=== PATIENT | male | born 1955 | race Caucasian/White ===

== ENCOUNTER 2019-04-10 09:44 | Outpatient (CLI) | payer MEDICARE, OTHER ==
--- NOTE | 2019-04-10 13:22 | MRI ---
"PRELIMINARY REPORT" MRI PELVIS WITH AND WITHOUT CONTRAST: HISTORY: Elevated PSA. COMPARISON: None. TECHNIQUE: Multiplanar multisequence MRI of the pelvis was performed using prostate protocol. FINDINGS: The prostate measures 5.1 x 4.9 x 5.4 cm for a volume of 69.6 cc. Peripheral zone: There are no abnormal foci of diffusion restriction in the peripheral zone. Transitional zone: No abnormal lentiform focus of T2 signal abnormality. Prostatic capsule: Intact. Neurovascular bundles: Intact. Seminal vesicles: Intact. Urinary bladder: Mildly trabeculated bladder. Lymph nodes: No adenopathy. Bones: On the T1 weighted imaging sequence there are no abnormal foci of marrow signal loss to sugges t osseous metastatic disease. Intrapelvic soft tissues: Mild diverticular disease of the sigmoid colon. IMPRESSION: 1. PI-RADS category 2 - low (clinically significant prostate cancer is unlikely to be present). 2. Prostatic volume of 69.6 cc 3. Intact prosthetic capsule, neurovascular bundles, and seminal vesicles. 4. No evidence for osseous or lymphatic metastatic disease. Transcribed Date/Time: 04/10/2019 1:49 PM
[2019-04-10] MEDS ORDERED: Magnevist 469MG/ML 20 ML VIAL ONE (14:01)
== END 2019-04-10 09:45 | disposition home or self-care (01) ==
LOC: TBSIIMAG 09:44
PROVIDERS: ATTEND Urology
DX: R97.20 Elevated prostate specific antigen [PSA] (principal)
CPT/HCPCS: 72197; A9579

== ENCOUNTER 2019-04-11 08:26 | Outpatient (CLI) | payer MEDICARE, OTHER ==
[2019-04-11] MEDS ORDERED: Iopamidol 370 76% 100 ML VIAL ONE (09:00)
--- NOTE | 2019-04-11 10:15 | CT ---
CT ABDOMEN AND PELVIS WITH AND WITHOUT IV CONTRAST: HISTORY: Elevated PSA. Microscopic hematuria. FINDINGS: The lung bases are clear. No calcified gallstones are seen. The liver, spleen and pancreas appear nor mal. There is nodularity in the adrenal glands, consistent with small adenomas. No calculi are seen in the kidneys, ureters or urinary bladder. No hydroureteronephrosis is noted on either side. Post contrast images demonstrate no evidence of renal mass. There is normal contrast exc retion into the pelvicalyceal systems, ureters and the urinary bladder. The prostate is enlarged. No free air, free fluid or lymphadenopathy is seen in the abdomen or pelvis. The small bowel loops ar e not abnormally dilated. The appendix is normal. There are vascular calcifications without evidence of aneurysmal dilatation of the abdominal aorta. There are degenerative changes in the spine. IMPRESSION: 1. No CT evidence of urinary tract calculi/obstruction or renal mass. 2. Prostatic enlargement. 3. Colonic diverticulosis. 4. Small adrenal adenomas. POS: KYLIE
== END 2019-04-11 08:27 | disposition home or self-care (01) ==
LOC: SCSCT 08:26
PROVIDERS: ATTEND Urology
DX: R97.20 Elevated prostate specific antigen [PSA] (principal); R31.29 Other microscopic hematuria; K57.30 Diverticulosis of large intestine without perforation or abscess without bleeding; N40.0 Benign prostatic hyperplasia without lower urinary tract symptoms; D35.02 Benign neoplasm of left adrenal gland; D35.01 Benign neoplasm of right adrenal gland
CPT/HCPCS: 74178; Q9967

== ENCOUNTER 2019-04-17 07:53 | Outpatient (CLI) | payer MEDICARE, OTHER ==
[2019-04-17 12:37] LABS: Hemoglobin 15.4 g/dL (14.0-18.0); Mean Corpuscular HGB CONC 33.9 g/dL (32.0-36.0); Mean Corpuscular Hemoglobin 29.8 pg (27.0-31.0); Mean Platelet Volume 7.7 fL (7.4-10.4); Platelet Count 204 thou/uL (130-400); RBC Distribution Width 12.6 % (11.5-14.5); Red Blood Cell (RBC) Count 5.18 mill/uL (4.70-6.10); White Blood Cell (WBC) Count 7.2 thou/uL (4.8-10.8)
[2019-04-17 12:43] LABS: INR-International Normal Ratio 0.9; Prothrombin Time 12.2 SEC (12.0-14.7)
[2019-04-17 12:44] LABS: PTT 27.3 SEC (22.9-36.1)
[2019-04-17 12:54] LABS: Bacteria/HPF None Seen HPF (None Seen); Bilirubin Negative (Negative); Blood, Urine Negative (Negative); Clarity Clear (Clear); Glucose, Urine (Dipstick) Normal (Negative); Leukocyte 75 Leu/uL (Negative); Nitrite Negative (Negative); Protein, Urine (Dipstick) 30 mg/dL (Neg-Trace); Squamous Epithelial None Seen HPF (0-3); WBC/HPF 0-3 HPF (0-3)
[2019-04-17 13:13] LABS: Anion Gap 10 mmol/L (10-20); BUN (Urea Nitrogen) 17 mg/dL (8.4-25.7); Calc. Creatinine Clearance 0 mL/min (70-130); Calcium 9.8 mg/dL (7.8-10.44); Carbon Dioxide 27 mmol/L (23-31); Chloride 108 mmol/L (98-107); Estimated GFR-MDRD 76; Glucose 93 mg/dL (80-115); Potassium 3.6 mmol/L (3.5-5.1); Sodium 141 mmol/L (136-145)
== END 2019-04-17 07:54 | disposition home or self-care (01) ==
LOC: LABBT 07:53
PROVIDERS: ATTEND Urology
DX: Z01.818 Encounter for other preprocedural examination (principal); R97.20 Elevated prostate specific antigen [PSA]; R39.15 Urgency of urination; N40.1 Benign prostatic hyperplasia with lower urinary tract symptoms; R35.1 Nocturia; I10 Essential (primary) hypertension; R31.29 Other microscopic hematuria; N52.9 Male erectile dysfunction, unspecified; N43.3 Hydrocele, unspecified; Z98.890 Other specified postprocedural states; Z72.0 Tobacco use; Z80.42 Family history of malignant neoplasm of prostate
CPT/HCPCS: 80048; 81001; 85027; 85610; 85730; 87086; 93005; 93010

== ENCOUNTER 2019-05-07 07:34 | Day surgery (SDC) | payer MEDICARE, OTHER ==
[2019-05-07] MEDS ORDERED: Levofloxacin 500 mg/D5W 100 ml Premix Bag ONE (07:50)
[2019-05-07] MEDS ORDERED: Gentamicin Sulfate 100 MG in Premix Bag 1 BAG IVPB SCH (08:00)
[2019-05-07] MEDS ORDERED: Midazolam HCl 2 mg/2 ml Vial ONE (09:27)
[2019-05-07] MEDS ORDERED: Fentanyl 100 MCG/2 ML VIAL ONE (09:28)
[2019-05-07] MEDS ORDERED: Glycopyrrolate 0.2 MG/ML 5 ML SYRINGE ONE (09:56)
[2019-05-07] MEDS ORDERED: ePHEDrine/0.9% NaCl/PF SYRINGE 50 mg/10 ml ONE (09:56)
[2019-05-07] MEDS ORDERED: PROPOFOL 200 MG/20 ML VIAL ONE (09:56)
[2019-05-07] MEDS ORDERED: Oxybutynin 5 MG TAB ONE (10:39)
[2019-05-07] MEDS ORDERED: Phenazopyridine HCl 97.5 MG TABLET ONE (10:39)
[2019-05-07] MEDS ORDERED: HYDROcodone/Acetaminophen 5/325 mg Tablet ONE (12:12)
--- NOTE | 2019-05-07 12:29 | OP ---
DATE OF PROCEDURE: 05/07/2019 PRIMARY CARE PHYSICIAN: Lanre Mckenna MD PREOPERATIVE DIAGNOSES: 1. A 64-year-old male with history of benign prostatic hyperplasia, on Flomax. 2. Elevated PSA with unremarkable LISSET, PSA of 8.14. 3. Microscopic hematuria. 4. Subclinical small hydrocele, on observation. 5. Impotence. POSTOPERATIVE DIAGNOSES: 1. A 64-year-old male with history of benign prostatic hyperplasia, on Flomax. 2. Elevated PSA with unremarkable LISSET, PSA of 8.14. 3. Microscopic hematuria. 4. Subclinical small hydrocele, on observation. 5. Impotence. PROCEDURES PERFORMED: Cystoscopy, bladder biopsy of incidental bladder neck lesion, fulguration of biopsy site, 18-Canadian 3-way Chilel catheter placement, 30 mL CBI port plugged to leg bag, transrectal ultrasound volume study, 12-core needle prostate biopsy. ANESTHESIA: LMA. COMPLICATIONS: None apparent. DISPOSITION: To recovery room in stable condition. Specimen: Bladder neck lesion 12 core needle prostate biopsy INDICATIONS FOR PROCEDURE AND HISTORY: Mr. Boston is a pleasant 64-year-old male, who was referred to pr for elevated PSA. Previous biopsy at [facility] negative, however, does not desire to return to [facility] provider. He underwent MRI, which demonstrates no region of interest, he does have BPH symptoms on Flomax. He presents today for 12-core needle prostate biopsy and cystoscopy as he has incidental microscopic hematuria, CT negative. Indications were reviewed , risks and complications including, but not limited to, bleeding, pain, infection , injury to adjacent organs, urosepsis, bleeding, pain, infection reviewed with him in detail. All questions answered to his satisfaction and desired to proceed. DESCRIPTION OF PROCEDURE: After an informed consent was signed, the patient was taken to the operating room, placed in a dorsal lithotomy position with the genital area prepped and draped in the usual surgical sterile fashion. A flexible cystoscopy was performed initially for staging. Cystoscopy demonstrated normal anterior and posterior urethra with moderately obstructing bilobar hyperplasia with no evidence of intravesical median lobe. However, upon entering the bladder at the level of the bladder neck, there was a sessile pedunculated lesion on a stalk suspicious for transitional cell carcinoma. The lesion measures approximately 6 to 8 mm, it has a narrow stalk with a pedunculated sessile lesion. Narrow stalk was seen at the level of the bladder neck. The ureteral orifices were identified about 3 to 4 mm proximal to the bladder neck with bilateral clear efflux of urine. No other suspicious lesions for malignancy as I did transition him to lithotomy and a rigid 30-degree and a 70-degree lens was utilized for formal cystoscopy. At this time, we did remove the lesion in block. As it had a narrow stalk at the bladder neck, I was able to remove this complete. The biopsy site was then cauterized with endoscopic Bugbee with good hemostasis. At this time, an 18-Canadian 3-way Chilel catheter was placed, attached to leg bag, gravity bag. The patient was then placed in a lateral decubitus position, and a transrectal ultrasound probe was placed. LISSET was grossly unremarkable. Volume study was obtained, which demonstrated urethral length of 5.6, width of 5.9, height of 4.9, volume estimated to be 88.2 g with no evidence of intravesical median lobe. The 12-core needle prostate biopsy was performed. As he has underlying symptoms of BPH, bladder neck lesion biopsied and fulgurated in 12-core needle biopsy, I will leave an indwelling Chilel catheter for 48 hours. He will return to clinic this Tuesday for catheter removal, voiding trial. He will be advised to increase his Flomax to b.i.d., and discharged with ciprofloxacin for 5 days, Azo p.r.n., tramadol 50 mg 1 to 2 p.o. q.6 hours p.r.n. He will return to clinic this Tuesday to review bladder biopsy, transrectal needle core biopsy if results are present. Due to his prostate volume, he will be advised that we will be adding [id number]-irmwliphl inhibitor. Job ID: [id number] [facility]
== END 2019-05-07 12:49 | disposition home or self-care (01) ==
LOC: SDC 07:34
PROVIDERS: ATTEND Urology
PROC: 0TBB8ZX Excision of Bladder, Via Natural or Artificial Opening Endoscopic, Diagnostic (ICD-10-PCS; principal; 2019-05-07)
PROC: 0VB03ZX Excision of Prostate, Percutaneous Approach, Diagnostic (ICD-10-PCS; 2019-05-07)
PROC: BV49ZZZ Ultrasonography of Prostate and Seminal Vesicles (ICD-10-PCS; 2019-05-07)
DX: D30.3 Benign neoplasm of bladder (principal); N40.0 Benign prostatic hyperplasia without lower urinary tract symptoms; R31.29 Other microscopic hematuria; N43.3 Hydrocele, unspecified; N52.9 Male erectile dysfunction, unspecified; I10 Essential (primary) hypertension; F17.210 Nicotine dependence, cigarettes, uncomplicated; Z79.899 Other long term (current) drug therapy; Z88.0 Allergy status to penicillin; Z88.2 Allergy status to sulfonamides
CPT/HCPCS: 88305; 88341; 88342; J1580; J1956; J2250; J2704; J3010

== ENCOUNTER 2021-11-04 11:37 | Outpatient (CLI) | payer MEDICARE, OTHER ==
[2021-11-04 12:49] LABS: Hemoglobin 15.5 g/dL (13.5-17.5); Mean Corpuscular HGB CONC 34.5 g/dL (32.0-36.0); Mean Corpuscular Hemoglobin 29.6 pg (27.0-33.0); Mean Corpuscular Volume 85.9 fl (81.2-95.1); Mean Platelet Volume 9.2 fl (7.4-10.4); Platelet Count 228 10x3/uL (150-450); RBC Distribution Width 13.8 % (11.5-14.5); Red Blood Cell (RBC) Count 5.23 10x6/uL (4.32-5.72)
[2021-11-04 13:04] LABS: INR-International Normal Ratio 0.9; PTT 26.4 sec (22.0-33.0)
[2021-11-04 13:11] LABS: Anion Gap 15 mmol/L (10-20); BUN (Urea Nitrogen) 24 mg/dL (8.4-25.7); Calc. Creatinine Clearance 0 mL/min (70-130); Calcium 9.4 mg/dL (7.8-10.44); Carbon Dioxide 23 mmol/L (23-31); Chloride 108 mmol/L (98-107); Glucose 113 mg/dL (80-115); Potassium 3.6 mmol/L (3.5-5.1); Sodium 142 mmol/L (136-145)
[2021-11-04 13:18] LABS: Bilirubin Neg (Negative); Blood, Urine 150 (Negative); Clarity Clear (Clear); Glucose, Urine (Dipstick) Normal (Negative); Ketone, Urine Negative (Negative); Leukocyte 25 (Negative); Nitrite Negative (Negative); Protein, Urine (Dipstick) 30 mg/dl (Neg-Trace); Specific Gravity, Urine 1.025 (1.002-1.036); Urobilinogen Normal mg/dL (Less than 2)
[2021-11-04 13:38] LABS: Squamous Epithelial 0-3 HPF (0-3)
[2021-11-04 13:39] LABS: Bacteria/HPF Rare-Few HPF (None Seen)
== END 2021-11-04 11:38 | disposition home or self-care (01) ==
LOC: LABBT 11:37
PROVIDERS: ATTEND Urology
DX: Z01.818 Encounter for other preprocedural examination (principal); D36.9 Benign neoplasm, unspecified site; N40.1 Benign prostatic hyperplasia with lower urinary tract symptoms; A63.0 Anogenital (venereal) warts; R39.15 Urgency of urination; R35.1 Nocturia; N52.9 Male erectile dysfunction, unspecified; N43.3 Hydrocele, unspecified; R31.29 Other microscopic hematuria; Q55.61 Curvature of penis (lateral); N48.6 Induration penis plastica; R55 Syncope and collapse; I10 Essential (primary) hypertension; Z20.822 Contact with and (suspected) exposure to COVID-19; Z72.0 Tobacco use; Z87.898 Personal history of other specified conditions; Z80.42 Family history of malignant neoplasm of prostate
CPT/HCPCS: 80048; 81001; 85027; 85610; 85730; 87086; 93005; U0003; U0005; 93010

== ENCOUNTER 2021-11-09 06:19 | Day surgery (SDC) | payer MEDICARE, OTHER ==
[2021-11-09] MEDS ORDERED: Midazolam HCl 2 mg/2 ml Vial ONE (08:20)
[2021-11-09] MEDS ORDERED: fentaNYL Citrate/PF 100 MCG/2 ML SYRINGE ONE (08:21)
[2021-11-09] MEDS ORDERED: Levofloxacin 500 mg/D5W 100 ml Premix Bag ONE (08:22)
[2021-11-09] MEDS ORDERED: B & O ONE (08:49)
[2021-11-09] MEDS ORDERED: Bacitracin Zinc Ointment 30 gm TUBE ONE (09:14)
[2021-11-09] MEDS ORDERED: Ondansetron PF 4 MG/2 ML Vial ONE (09:44)
[2021-11-09] MEDS ORDERED: Phenazopyridine HCl 100 MG TAB ONE ×2 (10:12)
== END 2021-11-09 14:27 | disposition home or self-care (01) ==
LOC: SDC 06:19
PROVIDERS: ATTEND Urology
PROC: 0T7D8DZ Dilation of Urethra with Intraluminal Device, Via Natural or Artificial Opening Endoscopic (ICD-10-PCS; principal; 2021-11-09)
PROC: 0TND8ZZ Release Urethra, Via Natural or Artificial Opening Endoscopic (ICD-10-PCS; 2021-11-09)
PROC: 0V5SXZZ Destruction of Penis, External Approach (ICD-10-PCS; 2021-11-09)
DX: N40.1 Benign prostatic hyperplasia with lower urinary tract symptoms (principal); N35.912 Unspecified bulbous urethral stricture, male; A63.0 Anogenital (venereal) warts; R35.1 Nocturia; R39.11 Hesitancy of micturition; R39.15 Urgency of urination; N32.3 Diverticulum of bladder; F17.210 Nicotine dependence, cigarettes, uncomplicated; N52.9 Male erectile dysfunction, unspecified; I10 Essential (primary) hypertension; N43.3 Hydrocele, unspecified; Z80.42 Family history of malignant neoplasm of prostate; Z79.899 Other long term (current) drug therapy; Z88.0 Allergy status to penicillin; Z88.2 Allergy status to sulfonamides
CPT/HCPCS: 52276; 54060; C9740; L8699; 88305; J1956; J2250; J2405